=== PATIENT | male | born 1985 | race Two or more races ===

== ENCOUNTER 2021-12-07 08:25 | Emergency (ER) | payer MEDICAID ==
[~2021-12-07] VITALS: Ht 177.8 cm; Wt 136.5 kg
[2021-12-07 08:34] VITALS: BP 134/100
[2021-12-07 09:03] LABS: Basophils # (auto) 0.1 10 ^3/uL (0-0.2); Hemoglobin 16.5 g/dL (13.5-17.5); Monocytes # (auto) 0.9 10 ^3/uL (0-1.3); Red Cell Distribution Width 13.1 % (11.8-14.3)
[2021-12-07 09:05] LABS: Basophils % (auto) 0.5 % (0.0-2.0); Eosinophils # (auto) 0 10 ^3/uL (0-0.8); Eosinophils % (auto) 0.4 % (0.0-7.0); Lymphocytes # (auto) 1.9 10 ^3/uL (0.4-5.4); Lymphocytes % (auto) 16.1 % (10.0-50.0); Mean Corpuscular Hemoglobin 27.2 pg (28.0-32.0); Mean Corpuscular Hgb Conc. 33.6 g/dL (32.0-36.0); Neutrophils # (auto) 8.6 10 ^3/uL (1.6-8.6); Nucleated Red Blood Cells % 0.1 %; Red Blood Cells 6.05 10^6/uL (4.5-5.90); White Blood Cell 11.5 10^3/uL (4.4-10.8)
[2021-12-07 09:20] LABS: BUN/Creatinine Ratio 13.3; Calcium 9.3 mg/dL (8.5-10.1)
[2021-12-07 09:38] LABS: Bilirubin, Total 1.5 mg/dL (0.2-1.0); Total Protein 7.6 g/dL (6.4-8.2)
== END 2021-12-07 12:50 | disposition home or self-care (01) ==
LOC: ER 08:25
DX: F41.8 Other specified anxiety disorders (principal); I10 Essential (primary) hypertension; E78.5 Hyperlipidemia, unspecified
CPT/HCPCS: 36415; 71046; 80053; 83880; 84484; 85025; 85379; 93005